=== PATIENT | female | born 1960 | race Caucasian/White ===

== ENCOUNTER 2022-06-12 08:46 | Outpatient (CLI) | payer OTHER, SELFPAY | END 2022-06-12 08:47 | disposition home or self-care (01) | LOC: NFLDREF 06-19 13:13 | PROVIDERS: PCP Physician Assistant Medical; Referring Provider Physician Assistant Medical; Visit Provider Physician Assistant Medical | DX: E11.9 Type 2 diabetes mellitus without complications (principal); Z13.6 Encounter for screening for cardiovascular disorders | CPT/HCPCS: 80048; 80061; 82043; 82570 ==

== ENCOUNTER 2022-11-19 10:49 | Outpatient (CLI) | payer OTHER, SELFPAY | END 2022-11-19 10:50 | disposition home or self-care (01) | LOC: NFLDREF 11-20 12:17 | PROVIDERS: PCP Physician Assistant Medical; Referring Provider Physician Assistant Medical; Visit Provider Physician Assistant Medical | DX: R41.3 Other amnesia (principal); E11.9 Type 2 diabetes mellitus without complications | CPT/HCPCS: 82306; 82607 ==

== ENCOUNTER 2023-07-01 10:44 | Outpatient (CLI) | payer OTHER, SELFPAY | END 2023-07-01 10:45 | disposition home or self-care (01) | LOC: NFLDREF 07-03 06:59 | PROVIDERS: PCP Physician Assistant Medical; Referring Provider Physician Assistant Medical; Visit Provider Physician Assistant Medical | DX: E11.9 Type 2 diabetes mellitus without complications (principal); N39.46 Mixed incontinence | CPT/HCPCS: 80053; 80061; 82043; 82570 ==

== ENCOUNTER 2023-09-24 13:02 | Outpatient (CLI) | payer OTHER, SELFPAY ==
--- NOTE | 2023-09-24 13:20 | CRLHL7_ITS ---
For Patients: As a result of the Century Cures Act, medical imaging exams and procedure reports are released immediately into your electronic medical record. You may view this report before your referring provider. If you have questions, please contact your health care provider. BILATERAL SCREENING MAMMOGRAM WITH COMPUTER-AIDED DETECTION AND TOMOSYNTHESIS TECHNIQUE: CC and MLO views were obtained. These mammographic images have been obtained using full-field digital technique. These mammographic images were interpreted with the benefit of computer-aided detection. Breast Tomosynthesis was used in this interpretation. COMPARISON FILM: 03/25/21, 05/19/18, 04/07/16. FINDINGS: There are scattered areas of fibroglandular density. IMPRESSION: There is no radiographic evidence for malignancy. ASSESSMENT: BI-RADS Category 1: Negative RECOMMENDATION: Routine screening mammogram in 1 year. A lay language report of this examination will be provided to the patient. Carlos Camejo M.D. Diagnostic Radiologist [email or web address] SP/Dictated by: Carlos Camejo MD @ 09/28/2023 11:49:00 AM (Electronically Signed)
--- NOTE | 2023-09-24 14:00 | CRLHL7_ITS ---
For Patients: As a result of the Cures Act, medical imaging exams and procedure reports are released immediately into your electronic medical record. You may view this report before your referring provider. If you have questions, please contact your health care provider. INDICATION: History of smoking; screening chest CT. COMPARISON: None. Technique: Low-dose screening chest CT. FINDINGS: No abnormal mediastinal or hilar lymphadenopathy. Normal size cardiac silhouette without any pericardial effusion. No evidence of pleural effusion or chest wall pathology. A tiny calcified granuloma right lung base. Limited CT through the upper abdomen reveals evidence of cholecystectomy. IMPRESSION: Lung rads category 1; low-dose screening chest CT in 12 months duration suggested. Please note that all CT scans at this facility use dose modulation, iterative reconstruction, and/or weight-based dosing when appropriate to reduce radiation dose to as low as reasonably achievable. Dictated by Moe Nbole MD @ 09/25/2023 1:40:49 PM (Electronically Signed)
== END 2023-09-24 13:03 | disposition home or self-care (01) ==
LOC: MAMMO 13:02
PROVIDERS: PCP Physician Assistant Medical; Visit Provider Physician Assistant Medical
DX: Z12.31 Encounter for screening mammogram for malignant neoplasm of breast (principal); Z12.2 Encounter for screening for malignant neoplasm of respiratory organs; Z87.891 Personal history of nicotine dependence
CPT/HCPCS: 71271; 77063; 77067

== ENCOUNTER 2023-10-07 08:06 | Outpatient (CLI) | payer OTHER, SELFPAY | END 2023-10-07 08:07 | disposition home or self-care (01) | LOC: NFLDREF 10-09 10:40 | PROVIDERS: PCP Physician Assistant Medical; Referring Provider Physician Assistant Medical; Visit Provider Physician Assistant Medical | DX: E78.5 Hyperlipidemia, unspecified (principal) | CPT/HCPCS: 80061; 84450; 84460 ==

== ENCOUNTER 2024-07-27 11:59 | Outpatient (CLI) | payer OTHER, SELFPAY | END 2024-07-27 12:00 | disposition home or self-care (01) | LOC: NFLDREF 07-30 19:38 | PROVIDERS: PCP Physician Assistant Medical; Referring Provider Physician Assistant Medical; Visit Provider Physician Assistant Medical | DX: E78.5 Hyperlipidemia, unspecified (principal); E11.9 Type 2 diabetes mellitus without complications; E55.9 Vitamin D deficiency, unspecified; E66.9 Obesity, unspecified; Z79.85 Long-term (current) use of injectable non-insulin antidiabetic drugs | CPT/HCPCS: 80053; 80061; 82043; 82306; 82570; 84443 ==

== ENCOUNTER 2024-07-28 09:45 | Outpatient (CLI) | payer OTHER, SELFPAY | END 2024-07-28 09:46 | disposition home or self-care (01) | PROVIDERS: PCP Physician Assistant Medical; Referring Provider Physician Assistant Medical; Visit Provider Physician Assistant Medical | DX: E11.9 Type 2 diabetes mellitus without complications; Z79.85 Long-term (current) use of injectable non-insulin antidiabetic drugs | CPT/HCPCS: 82043; 82570 ==

== ENCOUNTER 2025-01-02 10:50 | Outpatient (CLI) | payer OTHER, SELFPAY ==
[2025-01-02 12:13] LABS: PCR FLU A Negative PCR FLU A (Negative); PCR FLU B Negative PCR FLU B (Negative); PCR RSV Negative PCR RSV (Negative); SARS PCR* Negative SARS-CoV-2 (Negative)
== END 2025-01-02 10:51 | disposition home or self-care (01) ==
LOC: FRMREF 10:50
PROVIDERS: PCP Physician Assistant Medical; Visit Provider Family Medicine
DX: R06.2 Wheezing (principal)
CPT/HCPCS: 87631